=== PATIENT | female | born 1945 | race Caucasian/White ===

== ENCOUNTER 2016-05-28 15:34 | Outpatient (CLI) | payer MEDICARE ==
--- NOTE | 2016-05-28 20:29 | RAD ---
CHEST TWO VIEWS: Date: 05-28-16 Comparison: 11-23-10 FINDINGS: The heart is upper normal in size. There is no vascular congestion or effusions. There is some sli ght generalized increase in the interstitial markings that may be fibrosis. The lungs are minimally hyperexpanded with only slight flattening of the diaphragm. The trachea is midline. IMPRESSION: Borderline heart size. Slight interstitial prominence, but no focal findings. POS: HOME
== END 2016-05-28 15:35 | disposition home or self-care (01) ==
LOC: BURRAD 15:34
PROVIDERS: ATTEND Physician Assistant
DX: R06.02 Shortness of breath (principal)
CPT/HCPCS: 36415; 71020; 80053; 83880; 84443; 85025

== ENCOUNTER 2016-05-28 15:43 | Outpatient (CLI) | payer MEDICARE ==
[2016-05-28 17:52] LABS: #Eosinphils 0.2 thou/uL (0.0-0.7); #Lymphocytes 1.8 thou/uL (1.20-3.40); #Monocytes 0.4 thou/uL (0.11-0.59); #Neutrophils 4.9 thou/uL (1.40-6.50); %Basophils 0.5 % (0.0-1.0); %Eosinophils 2.1 % (0.0-10.0); %Monocytes 5.4 % (0.0-10.0); Hematocrit 40.6 % (36.0-47.0); Mean Platelet Volume 7.2 fL (7.4-10.4); Red Blood Cell (RBC) Count 4.45 mill/uL (4.20-5.40); White Blood Cell (WBC) Count 7.3 thou/uL (4.8-10.8)
[2016-05-28 18:08] LABS: ALT (SGPT) 12 U/L (0-55); AST (SGOT) 13 U/L (5-34); Alkaline Phosphatase 60 U/L (40-150); Anion Gap 16 mmol/L (10-20); BUN (Urea Nitrogen) 25 mg/dL (9.8-20.1); Bilirubin, Total 0.3 mg/dL (0.2-1.2); Calc. Creatinine Clearance 0 mL/min (70-130); Calcium 9.3 mg/dL (7.8-10.44); Carbon Dioxide 21 mmol/L (23-31); Chloride 110 mmol/L (98-107); Estimated GFR-MDRD 61; Protein, Total 6.7 g/dL (5.8-8.1)
== END 2016-05-28 15:44 ==
LOC: HPCALD 15:43
PROVIDERS: ATTEND Physician Assistant
DX: R06.02 Shortness of breath (principal)
CPT/HCPCS: 36415; 80053; 83880; 84443; 85025

== ENCOUNTER 2016-06-05 15:31 | Outpatient (CLI) | payer MEDICARE ==
--- NOTE | 2016-06-05 20:41 | RAD ---
CHEST TWO VIEWS: 06/05/16 Comparison is made with the 05/28 study. No major lobar infiltrate or effusion was seen. Previously on e might wonder about a little haziness in the right base medially, though today it is marginally dif ferent and I see nothing on the lateral view. No new infiltrates have occurred. There are no congest eric changes. The trachea is midline. IMPRESSION: Minimal change since 05/28. There is still very minor amount of haziness in the right base medially th at may or may not be significant. Interval change is minimal. POS: HOME
== END 2016-06-05 15:32 | disposition home or self-care (01) ==
LOC: BURRAD 15:31
PROVIDERS: ATTEND Physician Assistant
DX: R06.02 Shortness of breath (principal)
CPT/HCPCS: 71020

== ENCOUNTER 2018-06-09 15:40 | Emergency (ER) | payer MEDICARE, OTHER ==
[2018-06-09] MEDS ORDERED: traMADol HCl 50 MG TAB ONE (16:28)
--- NOTE | 2018-06-09 17:43 | CT ---
CT OF THE BRAIN WITHOUT CONTRAST: Date: 06/09/[address] scan was done which shows normal sized ventricles for age and atrophy. There is no v entricular system. No intracranial bleeding or extra-axial hematoma seen. No sign of mass, acute stro ke, or edema. There may be a tiny lacunar infarct in the basal ganglia on the left side, though it co uld also merely be a prominent Virchow space. The skull appears intact. The visible paranasal sinuses and mastoid air cells are clear. IMPRESSION: No acute intracranial finding. POS: HOME
--- NOTE | 2018-06-09 18:07 | CT ---
CT CERVICAL SPINE WITHOUT CONTRAST: 06/09/2018 TECHNIQUE: A spiral CT of the cervical spine was done following a fall. Axial slices were acquired, followed by coronal and sagittal reconstructions. FINDINGS: No fracture, dislocation, or acute disk space abnormality is seen. The soft tissues are normal in th ickness, and the C1 to dens distance is normal. Findings by level follow: C1-C2: No acute findings. C2-C3: No acute findings. 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 Mild to moderate left foraminal narrowing. C4-C5: Minor left foraminal narrowing. C5-C6: Minor bilateral foraminal narrowing. C6-C7: Minor bilateral foraminal narrowing. C7-T1: No acute findings. T1-T2: No acute findings. Some scarring is seen in the lung apices. No soft tissue masses are seen in the neck. IMPRESSION: Mild degenerative changes but no acute bony findings. POS: HOME
== END 2018-06-09 16:43 | disposition home or self-care (01) ==
LOC: BURERS 15:40
DX: S16.1XXA Strain of muscle, fascia and tendon at neck level, initial encounter (principal); S00.93XA Contusion of unspecified part of head, initial encounter; S50.312A Abrasion of left elbow, initial encounter; W18.09XA Striking against other object with subsequent fall, initial encounter; Z79.899 Other long term (current) drug therapy
CPT/HCPCS: 70450; 72125